=== PATIENT | female | born 1975 | race Caucasian/White ===

== ENCOUNTER 2022-09-16 04:41 | Inpatient (IN) | payer BC, SELFPAY ==
[2022-09-16 04:44] VITALS: BP 112/71; PULSE 78; RESP 16; TEMP 36.8; O2SAT 99
--- NOTE | 2022-09-16 04:45 | DI.CT_ITS ---
Exam(s) CT ABDOMEN PELVIS W EXAM: CT ABDOMEN PELVIS W CLINICAL HISTORY: ov Ca, bowel resect, appe, Now vomiting, r/o obstr TECHNIQUE: Imaging Protocol: Axial computed tomography images with coronal and sagittal reformatted images were created and reviewed CONTRAST MATERIAL: Intravenous: Omnipaque 350 Contrast volume:100 mL Oral: No COMPARISON: No exams were available for comparison FINDINGS: ABDOMEN: Lung Bases: Normal where visualized. Liver: Normal density. No measurable mass. Portal, Superior Mesenteric, and Splenic Veins: Unremarkable. Gallbladder and Biliary Tract: No radiodense calculus or dilation. Pancreas: Normal density, no abnormal calcifications or inflammatory process. Spleen: Normal. Adrenals: No masses seen. Kidneys: Normal size, contour and axis. No radiodense stones or obstructive uropathy. No masses seen. Abdominal Aorta: Abdominal portion non-dilated. Bowel: There are dilated loops of small bowel in the lower abdomen with within normal caliber termina l ileum. The appendix is not seen, but there is no evidence of acute appendicitis. Postsurgical viviane nges are seen at the rectosigmoid junction. There is a large amount of stool seen throughout the col on. Peritoneal Cavity: There is a small amount of free fluid in the pericolic gutters bilaterally. There is a trace amount of free fluid in the pelvis. No free air. Lymph Nodes: Within normal limits. Bones: Within normal limits for the patient's age. Soft Tissues: Unremarkable. PELVIS: Bladder: Symmetric distention, no gross wall thickening. Reproductive Organs: Status post hysterectomy. Lymph Nodes: Within normal limits. Bones: Within normal limits for the patient's age. IMPRESSION: 1. Findings suspicious for a small-bowel obstruction in the right lower quadrant with normal caliber terminal ileum. 2. No free air. Small amount of abdominal pelvic ascites. RADIATION DOSE DELIVERED: 806.45mGy.cm Total DLP DATA REPOSITORY: All CT scans at this facility are submitted to the National Radiology Data Registry (NRDR) Dose Index Registry (DIR) with the [employer] (ACR). RADIATION OPTIMIZATION: All CT scans at this facility use at least one of these dose optimization te chniques: automated exposure control; mA and/or kV adjustment per patient size (includes targeted exa ms where dose is matched to clinical indication); or iterative reconstruction.
--- NOTE | 2022-09-16 05:04 | ED.GENADUL_ITS ---
Discharge Plan Disposition Patient Disposition: Admit to [facility] Condition: Improving Discharge Details Clinical Impression: Small bowel obstruction Primary Care Provider: Abena Finley ED Provider: Mahesh Carlisle Home Meds and New Rx's Prescriptions: No Action metformin 1,000 mg Tablet 1,000 mg PO DAILY levothyroxine [Synthroid] 137 mcg Tablet 137 mcg PO 1XD Medical Decision Making 47-year-old female with a past medical history of ovarian cancer with bowel resection, appendectomy, total hysterectomy and salpingo-oophorectomy, thyroid dysfunction, diabetes mellitus, who was initially treated with carboplatin during her initial ovary cancer, and now again on its recurrence. She had her most recent dose on , after which on Saturday she felt nauseous, had some cramps, and felt unwell. She had 2 episodes of vomiting. Now 12 hours later she has notable generalized abdominal pain which she describes as painful aching and bloating. She denies any diarrhea. She has been urinating regularly. She denies any fever or chills. No other complaints at this time. She gets her cancer treatment at the [facility] [place]. She is normally seen in [place] but she is currently visiting here at [facility]. No other complaints at this time. No other modifying factors. M demonstrates dry mucous membranes, and uncomfortable appearing female. Mild abdominal tenderness throughout the mid and lower abdomen regions. Differential is highest for obstruction, but also includes colitis, volvulus, or intra- abdominal infection or pathology. We will get a CT scan, patient's pain, monitor closely and reassess. 6:09 AM Laboratory work-up is returned normal, pain is much more well controlled after morphine. CT scan shows evidence of small bowel obstruction with an abrupt point of caliber transition in the right lower quadrant. Patient has received a 1 L normal saline bolus already. I did contact surgery discussed the case with Dr. Shannon, he agrees with the need for admission. He requests that the patient be hydrated with lactated Ringer's at this stage, and that an 18-gauge nasogastric tube be inserted. I did discuss with him the patient's current improvement of symptoms currently. I will place admission orders on his behalf. I have extensively reviewed the treatment plan with the patient. I have addressed all patient concerns at this time. I have also discussed the plan with the admitting physician and they agree with the current assessment and plan and have agreed to assume responsibility for the patient. All parties demonstrate verbal understanding and agreement with our assessment and plan at this time. The documentation in this chart was dictated using [employer] dictation software. Please excuse any dictation errors. FINDINGS: Lungs: Lung bases clear. Diaphragm: Elevation of the right hemidiaphragm Liver: Small indeterminate hypoattenuating hepatic lesion, incompletely characterized but most likely a small cyst or hemangioma. Gallbladder and bile ducts: Normal appearing gallbladder. No calcified gallstones. No biliary dilatation. Pancreas: Normal appearing pancreas. Spleen: Normal appearing spleen. Adrenal glands: Normal appearing adrenal glands. Kidneys and ureters: Normal appearing kidneys. No hydronephrosis. Stomach and bowel: No oral contrast. Stomach partially decompressed. Moderate dilatation of a long segment of small bowel extending into the pelvis with abrupt caliber transition in the right lower quadrant and complete collapse of the downstream distal and terminal ileum in keeping with small bowel obstruction. Surgery consultation recommended. Moderate retained fecal material in the colon. No evidence of diverticulitis or colitis. Suggestion of a distal rectosigmoid anastomosis. Correlation with surgical history recommended. Appendix: Appendix not identified. Prior appendectomy by report. Intraperitoneal space: Small amount of ascites. No free air. Vasculature: Normal caliber abdominal aorta. Lymph nodes: No pathologically enlarged mesenteric, retroperitoneal, or pelvic sidewall lymph nodes. Urinary bladder: Urinary bladder partially collapsed but grossly unremarkable, as seen. Reproductive: Prior hysterectomy. Ovaries not identified, obscured if present. Correlation with surgical history recommended. Bones/joints: No acute fracture seen among the bones of the abdomen or pelvis. Spinal degenerative change with anterior osteophytes at several lower thoracic levels. Soft tissues: No significant ventral or inguinal hernia. IMPRESSION: Small-bowel obstruction with an abrupt point of caliber transition in the right lower quadrant. Surgery consultation recommended. Small amount of ascites. No free air. Thank you for allowing us to participate in the care of your patient. Dictated and Authenticated by: Ta Chao MD 09/16/2022 5:51 AM Eastern Time ([place] & [place]) Sign Out No HPI General Date/Time Provider Initiated Documentation: 09/16/22 04:45 . HPI Narrative: 47-year-old female with a past medical history of ovarian cancer with bowel resection, appendectomy, total hysterectomy and salpingo-oophorectomy, thyroid dysfunction, diabetes mellitus, who was initially treated with carboplatin during her initial ovary cancer, and now again on its recurrence. She had her most recent dose on , after which on Saturday she felt nauseous, had some cramps, and felt unwell. She had 2 episodes of vomiting. Now 12 hours later she has notable generalized abdominal pain which she describes as painful aching and bloating. She denies any diarrhea. She has b een urinating regularly. She denies any fever or chills. No other complaints at this time. She [facility] [place]. She is normally seen in [place] but she is currently visiting here at [facility]. No other complaints at this time. No other modifying factors. Related Data Home Medications Medication Instructions Recorded Confirmed levothyroxine 137 mcg tablet 137 mcg PO 1XD 09/16/22 09/16/22 (Synthroid) metformin 1,000 mg tablet 1,000 mg PO DAILY 09/16/22 09/16/22 Allergies Allergy/AdvReac Type Severity Reaction Status Date / Time No Known Allergies Allergy Unverified 09/16/22 04:57 General Stated Complaint: Abd Prob LY: 3 Review of Systems All systems reviewed & are unremarkable except as noted in HPI and below PFSH All Active Problems (Updated 09/16/22 @ 06:12 by Mahesh Carlisle DO) Small bowel obstruction (Acute) Social History Smoking risk assessment performed?: No Do you feel safe at home: Yes Do you feel safe in your relationship?: Yes Exam Narrative Exam Narrative: 1.Const: Well-nourished, Well-developed, appearing stated age 2.Eyes: PERRL, no conjunctival injection, and symmetrical lids. 3.ENT: Atraumatic external nose and ears. dry MM. Neck: Symmetric, trachea midline, No thyromegaly. 4.CVS: +S1/S2, No murmurs or gallops. Peripheral pulses 2+ and equal in all extremities. Brisk capillary refill in all extremities. 5.RESP: Unlabored respiratory effort. Clear to auscultation bilaterally. No wheezes rales or rhonchi 6.GI: Soft, mildly bloated, generalized tenderness throughout, particularly the right left and mid lower abdominal regions. Bowel sounds present. Mild voluntary guarding, no rebound. 7.MSK: Normocephalic/Atraumatic, Extremities w/o deformity or ttp No cyanosis or clubbing, Normal movement of all extremities 8.Skin: Warm, Dry. No rashes or lesions. 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 Sensation grossly intact, no focal neurologic deficits. 10.Psych: (AAO) x3. Appropriate mood and affect Course Vital Signs Vital signs: Vital Signs Temperature 36.8 C 09/16/22 04:44 Pulse 78 09/16/22 04:44 Respiratory Rate 16 09/16/22 04:44 Blood Pressure 112/71 09/16/22 04:44 Pulse Oximetry 99 09/16/22 04:44 Temperature 36.8 C 09/16/22 04:44 Temperature Source Oral 09/16/22 04:44 Pulse 78 09/16/22 04:44 Respiratory Rate 16 09/16/22 04:44 Respiratory Effort 09/16/22 04:51 Blood Pressure 112/71 09/16/22 04:44 Pulse Oximetry 99 09/16/22 04:44 Oxygen Delivery Method Room Air 09/16/22 04:44 Oxygen Flow Rate 0 09/16/22 04:44 Pain Level 8 09/16/22 04:44
[2022-09-16] MEDS: MORPHine 4 MG/ML SYR IVP (05:09)
[2022-09-16] MEDS: Normal Saline 1,000 ML 1000 ML IV (05:09)
[2022-09-16 05:14] LABS: Abs Immature Grans 0.03 10^3/uL (0.0-0.06); Absolute Basophil Count 0.02 10^3/uL (0.0-0.2); Absolute Lymphocyte Count 0.76 10^3/uL (1.2-3.4); Absolute Monocyte Count 0.62 10^3/uL (0.1-0.8); Absolute Neutrophil Count 8.72 10^3/uL (1.2-6.7); Basophils % 0.2; HCT 37.4 % (36.0-46.0); HGB 13.4 g/dL (11.2-15.7); Immature Grans % 0.3; Lymphocytes % 7.5; MCH 35.5 pg (27.0-33.0); MCHC 35.8 % (32.0-36.0); MCV 99 fL (80-95); MPV 8.5 fL (8.0-11.0); Monocytes % 6.1; Neutrophils % 85.9; Platelet Count 201 10^3/uL (130-400); RBC 3.77 10^6/uL (3.93-5.22); RDW 15.9 % (11.7-14.6); RDW-SD 57.6 fL; WBC 10.15 10^3/uL (4.4-10.8)
[2022-09-16 05:27] LABS: ALT 28 U/L (14-59); AST 19 U/L (15-37); Alkaline Phosphatase 91 U/L (46-116); Anion Gap 9.4 mmol/L (3-11); BUN 18 mg/dL (7-18); Bilirubin, Total 0.7 mg/dL (0.2-1.0); CO2 25.6 mmol/L (21.0-32.0); CREATININE 0.8 mg/dL (0.55-1.02); Calcium 8.9 mg/dL (8.5-10.1); Chloride 103 mmol/L (98-107); Estimated GFR 90.83 (mL/min/1.73m2); Glucose 144 mg/dL (74-106); Lipase 81 U/L (73-393); Potassium 3.8 mmol/L (3.5-5.1); Sodium 138 mmol/L (136-145); Total Protein 7.2 g/dL (6.4-8.2)
[2022-09-16] MEDS: Normal Saline - Diluent 50 ML VIAL IV (05:35)
[2022-09-16] MEDS: Omnipaque 350 MG/ML 100 ML BTL IJ (05:36)
--- NOTE | 2022-09-16 05:52 | DI.VRAD_ITS ---
PROCEDURE INFORMATION: Exam: CT Abdomen And Pelvis With Contrast Exam date and time: 09/16/2022 5:33 AM Age: 47 years old Clinical indication: Other: Ov CA, bowel resect, appe, now vomiting, R/O obstr TECHNIQUE: Imaging protocol: Computed tomography of the abdomen and pelvis with contrast. Contrast material: 350; Contrast volume: 100 ml; Contrast route: INTRAVENOUS (IV); COMPARISON: No relevant prior studies available. FINDINGS: Lungs: Lung bases clear. Diaphragm: Elevation of the right hemidiaphragm Liver: Small indeterminate hypoattenuating hepatic lesion, incompletely characterized but most likely a small cyst or hemangioma. Gallbladder and bile ducts: Normal appearing gallbladder. No calcified gallstones. No biliary dilatation. Pancreas: Normal appearing pancreas. Spleen: Normal appearing spleen. Adrenal glands: Normal appearing adrenal glands. Kidneys and ureters: Normal appearing kidneys. No hydronephrosis. Stomach and bowel: No oral contrast. Stomach partially decompressed. Moderate dilatation of a long segment of small bowel extending into the pelvis with abrupt caliber transition in the right lower quadrant and complete collapse of the downstream distal and terminal ileum in keeping with small bowel obstruction. Surgery consultation recommended. Moderate retained fecal material in the colon. No evidence of diverticulitis or colitis. Suggestion of a distal rectosigmoid anastomosis. Correlation with surgical history recommended. Appendix: Appendix not identified. Prior appendectomy by report. Intraperitoneal space: Small amount of ascites. No free air. Vasculature: Normal caliber abdominal aorta. Lymph nodes: No pathologically enlarged mesenteric, retroperitoneal, or pelvic sidewall lymph nodes. Urinary bladder: Urinary bladder partially collapsed but grossly unremarkable, as seen. Reproductive: Prior hysterectomy. Ovaries not identified, obscured if present. Correlation with surgical history recommended. Bones/joints: No acute fracture seen among the bones of the abdomen or pelvis. Spinal degenerative change with anterior osteophytes at several lower thoracic levels. Soft tissues: No significant ventral or inguinal hernia. IMPRESSION: Small-bowel obstruction with an abrupt point of caliber transition in the right lower quadrant. Surgery consultation recommended. Small amount of ascites. No free air. Dictated and Authenticated by: Ta Chao MD. Ordering:KING Aragon MD
--- NOTE | 2022-09-16 06:45 | DI.RAD_ITS ---
Exam(s) XR PORTABLE CHEST AP EXAM: XR PORTABLE CHEST AP CLINICAL HISTORY: post ng tube TECHNIQUE: 2D digital imaging was performed of the chest. Two images were obtained. PA and lateral views were obtained. COMPARISON: No exams were available for comparison FINDINGS: MEDIASTINUM: Normal. HEART: Normal. PULMONARY VASCULATURE: Normal. LUNGS: No focal consolidating infiltrate. PLEURAL SPACE: No pleural effusion or pneumothorax. BONE:Within normal limits for the patient's age. OTHER FINDINGS:There is elevation of the right hemidiaphragm. The infusion port is in good position. The enteric tube is been placed. The tip is in the stomach. IMPRESSION: 1. No acute pulmonary findings. 2. Tip of the enteric tube is below the diaphragm in the stomach. DATA REPOSITORY: RADIATION DOSE DELIVERED:
[2022-09-16 07:03] LABS: COVID-19 PCR Negative (Negative); Influenza A PCR Negative (Negative); Influenza B PCR Negative (Negative); RSV PCR Negative (Negative)
[2022-09-16 07:10] LABS: Source Nasopharynx
--- NOTE | 2022-09-16 07:11 | DI.VRAD_ITS ---
PROCEDURE INFORMATION: Exam: XR Chest Exam date and time: 09/16/2022 6:32 AM Age: 47 years old Clinical indication: Other: Post ng tube TECHNIQUE: Imaging protocol: Radiologic exam of the chest. Views: 1 view. COMPARISON: CT ABDOMEN PELVIS W 09/16/2022 5:33 AM FINDINGS: Tubes, catheters and devices: An infusion port is present. NG tube below the diaphragm within the proximal stomach. Lungs: Atelectasis right and left lower lobes of the lung no definitive focal pneumonia. There is no evidence of focal pulmonary consolidation. The pulmonary vasculature is normal. Pleural spaces: There is no evidence of pneumothorax. There are no pleural effusions present. Heart/Mediastinum: The cardiac silhouette is within normal limits. The mediastinum is normal. Bones/joints: The spine, sternum, ribs, and pectoral girdles show no evidence of acute abnormality Other findings: There are no soft tissue masses or calcifications. IMPRESSION: 1. NG tube below the diaphragm within the proximal stomach. 2. Atelectasis right and left lower lobes of the lung no definitive focal pneumonia. Dictated and Authenticated by: Mike Roe MD. Ordering:KING Aragon MD
--- NOTE | 2022-09-16 08:32 | W.PM.HP.N ---
Date of service: 09/16/22 Time of Service: 09:30 Assessment and Plan Assessment and plan (1) Small bowel obstruction: Status: Acute Assessment and plan: 47 yo woman with mechanical SBO. HD stable. Grossly benign abdominal exam other than mild distention and subjectively improving. We discussed management strategies which surround decompression and waiting. She does have a sharp transitition point and there is some free fluid in the abdomen, but I don't recommend jumping to surgery considering the history and current clinical status. We discussed that this is msot likely secondary to scar tissue/adhesions, but that it is possible that peritoneal disease (cancer) is contributing to this. We will start with decompression, later this evening, we will do a gastrografin challenge and see if contrast goes to the colon on XR in the morning. I discussed decompression and monitoring for up to 72 hours and if no improvement, then surgical exploration may become necessary. Patient and her are in agreement with the management strategies. NPO IVF serial lab work while decompressing analgesia prn DVT ppx serial abdominal examination NGT - CONTIUNOUS suction Gastrografin challenge this PM History of Present Illness Narrative: 47 yo woman has been battling ovarian cancer 3 years or so. Currently under active chemotherapy, last given 2 days ago. Treated at [facility]. Surgical history of SEBASTIEN/BSO with seg colectomy. Recurrence reportedly in vaginal cuff and pelvic LNs. Now presents with 2 days of N/V and abdominal pain. Wasn't passing any gas either. Bloated abdomen. She has never had this happen before. CT in ED showed SBO with transition point in the RLQ . . . terminal ileum and colon are decompressed. NG tube was placed. Tip in stomach but vent port above diaphragm, so we advanced it 5cm. At the bedside this morning, she says her pain is much improved . . . gone really. Her NG tube is the only pain she currently has. Output has been scan on the floor, about 200cc gastric - no bile. It is functioning nicely. She thinks she has passed a little bit of gas. PFSH All Active Problems (Updated 09/16/22 @ 06:12 by Mahesh Carlisle DO) Small bowel obstruction (Acute) Social History Smoking risk assessment performed?: No Do you feel safe at home: Yes Do you feel safe in your relationship?: Yes Meds Allergies and Home Medications Allergies Allergy/AdvReac Type Severity Reaction Status Date / Time No Known Allergies Allergy Unverified 09/16/22 04:57 Home Medications Medication Instructions Recorded Confirmed Type levothyroxine 137 mcg tablet 137 mcg PO 1XD 09/16/22 09/16/22 History (Synthroid) metformin 1,000 mg tablet 1,000 mg PO DAILY 09/16/22 09/16/22 History Exam Narrative Exam Narrative: Gen: Nontoxic and comfortable and interactive. Neuro: AxOx3 Psych: Appropriate mood and affect Abdomen: Soft, mildly distended, no tenderness anywhere. Results Labs Result diagrams: 09/16/22 05:05 09/16/22 05:05 Labs: Laboratory Results - last 24 hr 09/16/22 09/16/22 09/16/22 05:05 05:05 06:20 WBC 10.15 RBC 3.77 L Hgb 13.4 Hct 37.4 MCV 99 H MCH 35.5 H MCHC 35.8 RDW 15.9 H Plt Count 201 MPV 8.5 Immature Gran % 0.3 Neutrophils % 85.9 Lymphocytes % 7.5 Monocytes % 6.1 Eosinophils % 0.0 Basophils % 0.2 Nucleated RBC % 0.0 Absolute Neutrophils 8.72 H Absolute Lymphocytes 0.76 L Absolute Monocytes 0.62 Absolute Eosinophils 0.00 Absolute Basophils 0.02 Sodium 138 Potassium 3.8 Chloride 103 Carbon Dioxide 25.6 Anion Gap 9.4 BUN 18 Creatinine 0.8 Est GFR (CKD-EPI 2020) 90.83 Glucose 144 H Calcium 8.9 Total Bilirubin 0.7 AST 19 ALT 28 Alkaline Phosphatase 91 Total Protein 7.2 Albumin 4.0 Lipase 81 COVID-19 Source Nasopharynx SARS-CoV-2 (PCR) Negative Influenza Type A (PCR) Negative Influenza Type B (PCR) Negative RSV (PCR) Negative Last Vital Signs Temp 98.3 F 09/16/22 04:44 Pulse 78 09/16/22 04:44 Resp 16 09/16/22 04:44 BP 112/71 09/16/22 04:44 Pulse Ox 99 09/16/22 04:44
[2022-09-16] MEDS: ACETAMINOPHEN 1,000 MG/100 ML BTL 400 MG IVPB ×2 (10:48→17:23)
[2022-09-16] MEDS: Benzocaine 20% 60 ML CAN TP ×2 (11:12→13:44)
[2022-09-16 11:36] VITALS: BP 106/73; PULSE 75; RESP 18; TEMP 36.7; O2SAT 99
[2022-09-16 12:18] LABS: Bilirubin Negative (Negative); Blood Negative (Negative); Clarity Clear (Clear); Glucose Negative (Negative); Ketones Negative (Negative); Leukocyte Esterase Negative (Negative); Nitrite Negative (Negative); Specific Gravity 1.015 (1.005-1.025); Urobilinogen 0.2 EU/dL (Up TO 0.2)
[2022-09-16] MEDS: Lactated Ringers 1,000 ML 150 ML IV ×2 (13:46→20:00)
[2022-09-16 15:17] VITALS: BP 120/81; PULSE 72; RESP 16; TEMP 37.5; O2SAT 98
--- NOTE | 2022-09-16 17:09 | INITIAL_ITS ---
- If Service Date Differs Date of service: 09/16/22 Time of Service: 17:09 Care Management Initial Assess REASON FOR HOSPITALIZATION:: SBO PAST MEDICAL HISTORY/PAST SURGICAL HISTORY:: Limited medical/surgical history. Active Problem. Small Bowel Obstruction PREVIOUS FUNCTIONAL STATUS/SOCIAL/FAMILY SUPPORTS:: Frances lives in [place] with her , Jasvir. Per report, she has been battling ovarian cancer for about three years. She is independent at baseline. CURRENT FUNCTIONAL STATUS:: Frances was sleeping when CM attempted to meet with her. Per RN, she has not been feeling well having the NG tube in today, therefore CM chose not to wake her up. Her was not in the room at the time, but her RN reported that he is very supportive. Per report, MD is attempting to resolve the SBO with non surgical intervention at this time, and will re evaluate tomorrow to determine if surgery is necessary. CM will continue to follow. ADVANCE DIRECTIVES:: Not on file. Has patient been provided with info about the portal/API?: Yes Did the patient sign up for the portal?: No CODE STATUS:: Full Code INSURANCE COVERAGE / FINANCIAL ISSUES:: /[facility] CURRENT HOME/COMMUNITY SERVICES/EQUIPMENT:: None known. PRIMARY CARE PHYSICIAN:: Abena Finley POTENTIAL DISCHARGE NEEDS:: Follow up appointments PATIENT/FAMILY EDUCATION NEEDS:: Review discharge instructions and limitations, discussion of self care needs including ask me three. ANTICIPATED BARRIERS TO DISCHARGE:: None identified. TRANSPORTATION:: Via private vehicle by her spouse. PLAN:: Anticipate Frances will return home when medically cleared. Her will drive her home via private vehicle. She will follow up with her PCP and marilu joshi plan of care. CM will continue to follow.
[2022-09-16] MEDS: Gastrografin 120 ML BTL PO (17:50)
[2022-09-16] MEDS: MORPHine 2 MG/ML SYR IVP (20:20)
[2022-09-16 20:33] VITALS: BP 122/76; PULSE 74; RESP 18; TEMP 37; O2SAT 98
[2022-09-16 23:05] VITALS: BP 124/72; PULSE 76; RESP 18; TEMP 36.6; O2SAT 98
[2022-09-17] MEDS: ACETAMINOPHEN 1,000 MG/100 ML BTL 400 MG IVPB ×2 (00:21→05:38)
[2022-09-17] MEDS: Lactated Ringers 1,000 ML 150 ML IV (03:09)
[2022-09-17 03:37] VITALS: BP 128/82; PULSE 68; RESP 17; TEMP 37.3; O2SAT 97
[2022-09-17 07:27] LABS: Anion Gap 4.1 mmol/L (3-11); BUN 9 mg/dL (7-18); CO2 28.9 mmol/L (21.0-32.0); CREATININE 0.6 mg/dL (0.55-1.02); Calcium 8.5 mg/dL (8.5-10.1); Chloride 103 mmol/L (98-107); Estimated GFR 110.65 (mL/min/1.73m2); Glucose 89 mg/dL (74-106); Potassium 3.6 mmol/L (3.5-5.1); Sodium 136 mmol/L (136-145)
--- NOTE | 2022-09-17 07:30 | DI.RAD_ITS ---
Exam(s) XR ABDOMEN FLAT UPRIGHT EXAM: XR ABDOMEN FLAT UPRIGHT CLINICAL HISTORY: SBO/gastrografin - assess for contrast into colon. TECHNIQUE: 2D digital imaging was performed. COMPARISON: CT CT ABDOMEN PELVIS W from 09/16/2022 FINDINGS: NG tube is in the stomach. Administered Gastrografin is predominately in the colon. No free air evident. There is still a few slightly prominent small bowel loops. IMPRESSION: The administered Gastrografin is predominantly in the colon. DATA REPOSITORY: RADIATION DOSE DELIVERED:
[2022-09-17 08:15] VITALS: BP 120/81; PULSE 85; RESP 16; TEMP 37.1; O2SAT 98
--- NOTE | 2022-09-17 08:22 | W.PM.PROGNOT ---
Date of Service Date of service: 09/17/22 Time of Service: 10:18 Assessment and Plan Assessment and plan (1) Small bowel obstruction: Status: Acute Assessment and plan: 47-year-old woman with a small bowel obstruction that appears to be resolving clinically. Symptoms have resolved, her abdominal exam is benign, she is passing gas and her upright plain film shows contrast in her colon. At this point we will trial NG tube removal and clear liquid diet and see if she can hydrate herself. As long she is able to maintain hydration and have good oral intake, she can be discharged later this afternoon. I had a discussion with her and her at the bedside that bowel obstructions can be recurrent and some degree of partial obstruction could still be remaining. At this time clinically this does not seem to be the case and I am optimistic the obstruction will stay resolved. Overall plan: Remove NG tube Hep-Lock IV fluids Clear liquid diet DVT prophylaxis Subjective Subjective Interval history since last seen: Overnight patient denies any problems. She has not had any nausea or vomiting since yesterday. The NG tube has suctioned out approximately 1000 cc. Gastrografin challenge was administered last night. She has been voiding adequately. At the bedside she said she has been passing gas. All of the abdominal pain is completely gone. Exam Narrative Exam Narrative: General: Nontoxic, comfortable and interactive Neuro: Alert and oriented x3 Psych: Appropriate mood and affect, good insight and understanding into her condition Abdomen: Soft, no obvious distention, no tenderness anywhere. Objective Last Vital Signs Temp 99.1 F 09/17/22 03:37 Pulse 68 09/17/22 03:37 Resp 17 09/17/22 03:37 BP 128/82 09/17/22 03:37 Pulse Ox 97 09/17/22 03:37 Laboratory Results - last 24 hr 09/16/22 09/17/22 11:30 06:50 Sodium 136 Potassium 3.6 Chloride 103 Carbon Dioxide 28.9 Anion Gap 4.1 BUN 9 Creatinine 0.6 Est GFR (CKD-EPI 2020) 110.65 Glucose 89 Calcium 8.5 Urine Color Yellow Urine Clarity Clear Urine pH 7.0 Ur Specific [place] 1.015 Urine Protein Negative Urine Ketones Negative Urine Blood Negative Urine Nitrite Negative Urine Bilirubin Negative Urine Urobilinogen 0.2 Ur Leukocyte Esterase Negative Urine Glucose Negative
--- NOTE | 2022-09-17 10:19 | PDOC.CMPRO ---
- If Service Date Differs Date of service: 09/17/22 Time of Service: 10:19 Care Management Progress Note S/O: Frances is sitting up in bed, staying busy filling out [place] cards and visiting with her when CM met with her. She is starting to feel better. Her NG tube is removed. She may discharge home later today if she tolerates PO intake and hydration. CM will follow. A: 47 year old female admitted to [facility] on 09/16/22 for Small bowel obstruction P: Anticipate Frances will return home when medically cleared. Her will drive her home via private vehicle. She will follow up with her PCP and discharge plan of care. CM will continue to follow.
[2022-09-17 11:54] VITALS: BP 107/69; PULSE 79; RESP 16; TEMP 37.4; O2SAT 97
[2022-09-17 15:41] VITALS: BP 102/65; PULSE 75; RESP 16; TEMP 37.1; O2SAT 98
--- NOTE | 2022-09-20 00:23 | DSE_ITS ---
Date of service: 09/17/22 Time of Service: 17:45 DS: Diagnosis Discharge Diagnosis (1) Small bowel obstruction: Status: Acute Asessment and Plan: 47-year-old woman with a history of a 3?year real with ovarian cancer status post hysterectomy and segmental colon resection presented with a mechanical small bowel obstruction. She was admitted to the hospital and an NG tube was placed and she was decompressed. On hospital day number 1 in the evening a Gastrografin challenge was administered to the NG tube. On the morning of hospital day #2 she was passing gas, had minimal output from her NG tube and an x-ray taken that morning showed Gastrografin into the colon. The NG tube was then removed and she was given a clear liquid diet. Later that afternoon she was tolerating and having no abdominal pain and was thus discharged home. She will follow-up with her PCP and oncologist. Discharge Plan Disposition Patient Disposition: Home Condition: Improving Discharge Details Reason For Visit: SBO Admit Date/Time: 09/16/22 06:07 Admit Provider: Jeramie Shannon Attending Provider: Jeramie Shannon Primary Care Provider: Abena Finley Home Meds and New Rx's Prescriptions: No Action metformin 1,000 mg Tablet 1,000 mg PO DAILY levothyroxine [Synthroid] 137 mcg Tablet 137 mcg PO 1XD Discharge Instructions Instructions: Clear Liquid Diet (DC), Bowel Obstruction (DC), GI (Gastrointestinal) Soft Diet (DC) Stand Alone Forms: Nursing Discharge Form Referrals: Judit Carmen MD [ [facility] STAFF PHYSICIAN] - (Follow up as needed) Activity:: Activity as Tolerated Equipment/Supplies:: No Equipment Needed Diet:: As Tolerated Discharge Orders Discharge Orders: Discharge Order (Routine); Ordered 09/17/22 Ordered By: Jeramie Shannon Discharge Data Discharge Date/Time-TO BE ENTERED AT DEPARTURE: 09/17/22 18:22 DS: Summary Time Spent with Patient providing and/or coordinating discharge services: Less than 30 minutes Status at Discharge Functional status at discharge: independent ambulation Overall status at discharge: patient is back to baseline Mental Status: mental status grossly normal Speech and Movement: speech and movement normal Mood: congruent mood Affect: normal affect Exam Psych Mental Status: mental status grossly normal Speech and Movement: speech and movement normal Mood: congruent mood Affect: normal affect DS: Data Vitals/I&O Vitals and I&O: Vital Signs Temperature 98.8 F 09/17/22 15:41 Temperature Source Tympanic 09/17/22 15:41 Pulse 75 09/17/22 15:41 Pulse Rhythm Regular 09/17/22 12:45 Respiratory Rate 16 09/17/22 15:41 Respiratory Effort Non-Labored 09/17/22 12:45 Respiratory Depth Normal 09/17/22 12:45 Respiratory Pattern Normal 09/17/22 12:45 Blood Pressure 102/65 09/17/22 15:41 Pulse Oximetry 98 09/17/22 15:41 Oxygen Delivery Method Room Air 09/17/22 15:41 Oxygen Flow Rate 0 09/17/22 15:41 Pain Level 0 09/17/22 03:37 PFSH All Active Problems (Updated 09/16/22 @ 06:12 by Mahesh Carlisle DO) Small bowel obstruction (Acute) Social History Smoking risk assessment performed?: No Do you feel safe at home: Yes Do you feel safe in your relationship?: Yes
== END 2022-09-17 18:22 | disposition home or self-care (01) | DRG 390 ==
LOC: ER 06:24 → MS 07:27
PROVIDERS: Admitting Provider Student in an Organized Health Care Education/Training Program; Emergency Provider Student in an Organized Health Care Education/Training Program; PCP Internal Medicine; Visit Provider Student in an Organized Health Care Education/Training Program
DX: K56.609 Unspecified intestinal obstruction, unspecified as to partial versus complete obstruction (principal); C52 Malignant neoplasm of vagina; Z85.43 Personal history of malignant neoplasm of ovary; Z90.722 Acquired absence of ovaries, bilateral; Z90.710 Acquired absence of both cervix and uterus; Z79.899 Other long term (current) drug therapy; Z90.49 Acquired absence of other specified parts of digestive tract
CPT/HCPCS: 36415; 80048; 80053; 83690; 87635; 87637; 96361; 96374; 99285; 71045; 74019; 74177; 81003; 85025; J0131; J2270; J3490